=== PATIENT | female | born 1975 | race Caucasian/White ===

== ENCOUNTER 2023-11-26 16:25 | Emergency (ER) | payer BC, SELFPAY ==
[2023-11-26 16:51] VITALS: BP 176/102; PULSE 69; RESP 16; TEMP 36.6; O2SAT 99
--- NOTE | 2023-11-26 17:01 | ED.GENADULT ---
HPI - General Adult General Chief complaint: Unspecified Stated complaint: BP high,headache Time Seen by Provider: 11/26/23 17:01 Source: patient, RN notes reviewed and old records reviewed Mode of arrival: ambulatory Limitations: no limitations History of Present Illness HPI narrative: 47 year old female who presents to [facility] with complaints of elevated blood pressure and headache today. Patient is here from [place] taking care of her mother who is terminally ill. Patient reports that she called her physician in [place] and was told to go to the ER and arrived at the [facility] instead. Patient reports that her blood pressure has been ranging around 140/80's for some time and her doctor has never put her on any blood pressure medication. Patient reports that she has been checking her blood pressure daily and today she had a headache and took Tylenol 2000mg this morning at 0930 and her blood pressure has been elevated all day with headache continuing to the crown (parietal) of her head. Patient denies any nausea or vomiting any tingling in extremities or in face. Patient has full mobility of all extremities. Patient did have bariatric surgery in the past 18 months and has had chronic nausea since surgery also bleeding ulcer has to watch diet carefully and takes Carafate as needed along with Prilosec and nausea medications. Patient does voice history of anxiety and is on daily Prozac and takes Alprazolam as needed which she has not taken today. MD complaint: elevated blood pressure and headache pain Onset (ago): hour(s) (since this morning) Location: head (crown of head (parietal)) Severity scale (1-10): 6 Pain Consistency: constant Treatments prior to arrival: other (Tylenol) Related Data Home Medications Medication Instructions Recorded Confirmed alprazolam 1 mg tablet 1 mg PO TID 11/26/23 11/26/23 fluoxetine 40 mg capsule 40 mg PO DAILY 11/26/23 11/26/23 hydrocodone 7.5 mg-acetaminophen 1 tablet PO QID PRN Pain 11/26/23 11/26/23 325 mg tablet meloxicam 15 mg tablet 15 mg PO DAILY 11/26/23 11/26/23 nortriptyline 25 mg capsule 25 mg PO HS 11/26/23 11/26/23 omeprazole 40 mg capsule,delayed 40 mg PO BID 11/26/23 11/26/23 release promethazine 25 mg tablet 25 mg PO QID PRN Nausea 11/26/23 11/26/23 tizanidine 4 mg tablet 8 mg PO TID PRN Spasms 11/26/23 11/26/23 zolpidem 10 mg tablet 10 mg PO HS PRN Sleep 11/26/23 11/26/23 Allergies Allergy/AdvReac Type Severity Reaction Status Date / Time No Known Allergies Allergy Verified 11/26/23 17:26 Review of Systems Review of Systems: CONSTITUTIONAL: Denies fever, chills, or sweats. EYES: Denies visual changes, redness, or discharge. ENT: Denies rhinorrhea, congestion, sore throat, or otalgia. CARDIOVASCULAR: Denies chest pain, palpitations, or edema. RESPIRATORY: Denies cough or dyspnea. GASTROINTESTINAL: Denies abdominal pain, nausea, vomiting, or diarrhea. GENITOURINARY: Denies dysuria or hematuria. SKIN: Denies rash or itching. MUSCULOSKELETAL: Denies back pain, joint pain, or myalgia. NEUROLOGIC: Reports headache, no numbness, or weakness. PSYCHIATRIC: Reports positive history of anxiety or depression. All systems reviewed & are unremarkable except as noted in HPI and below PMFSH Past Medical History Medical History (Updated 11/28/23 @ 09:38 by Enedina Kaplan NP) Anxiety Bleeding ulcer Hypertension Surgical History Surgical History (Updated 11/28/23 @ 09:37 by Enedina Kaplan NP) H/O gastric sleeve Hx of appendectomy Hx of cholecystectomy Hx of gastric bypass Social History Social History (Updated 11/28/23 @ 09:40 by Enedina Kaplan NP) Smoking status: Never smoker Alcohol use details: no alcohol use Substance use: never Living arrangements: with family Gender identity (if verbalized by the patient): Female Comments At time of signature, agree with nursing past medical, surgical, social and family history. There is no relevan
[2023-11-26] MEDS: cloNIDine HCL 0.1 MG TABLET PO (17:34)
[2023-11-26 18:26] VITALS: BP 148/82
--- NOTE | 2023-11-26 19:02 | PC.NURSE ---
Post Clonidine - BP at 1738 manually in left lower arm 172/94, BP at 1804 manually in the right lower arm 162/88 and [place] improving, BP at 1826 manually in left lower arm 148/82.
== END 2023-11-26 18:57 | disposition home or self-care (01) ==
PROVIDERS: Emergency Provider Registered Nurse
DX: I10 Essential (primary) hypertension (principal); R51.9 Headache, unspecified; F41.9 Anxiety disorder, unspecified; Z98.84 Bariatric surgery status
CPT/HCPCS: 99213; A9270; G0463